=== PATIENT | female | born 1990 | race Caucasian/White ===

== ENCOUNTER 2022-12-13 06:16 | Day surgery (SDC) | payer OTHER, SELFPAY ==
[2022-12-13] MEDS: DOXYCYCLINE HYCLATE 200 MG in 0.9 % SODIUM CHLORIDE 250 ml 250 ML 250 MG IVPB (06:45)
[2022-12-13] MEDS: LACTATED RINGERS 1000 ML 1,000 ML 100 ML IV (06:45)
[2022-12-13 06:54] LABS: Hemoglobin* 14.7 gm/dL (12.0-16.0)
[2022-12-13 07:15] VITALS: BP 122/71; PULSE 97; RESP 16; TEMP 37.6; O2SAT 98
[2022-12-13] MEDS: SODIUM CHLORIDE 0.9 % (FLUSH) 10 ML SYRINGE IVF (07:18)
--- NOTE | 2022-12-13 07:48 | P.GYNHP_ITS ---
[employer]: H&P: HPI Surgical History of Present Illness Time Seen by Provider: 07:30 Date Seen: 12/13/22 Last H&P: No Data to Display Narrative: Shiloh Crowder is a 32 year old female seen in pre-op prior to pl anned suction D&C for missed . She is 10w6d by LMP, measuring 6w2d by CRL of 5mm with absent cardiac activity and adjacent small subchorionic hemorrhage. hCGs were trended and noted to be decreasing consistent with early loss, from 16,772 to 13,490 across 48 hours. Shiloh affirms she is asymptomatic at this time. Denies significant abdominal pain or vaginal bleeding. No fevers/chills, chest pain, dyspnea, nausea/vomiting. PFSH PFSH Medical History (Updated 12/12/22 @ 09:08 by Lesvia Mack RN) Missed ?O02.1 - Missed (ICD-10) Pre-eclampsia affecting childbirth ?O14.94 - Unspecified pre-eclampsia, complicating childbirth (ICD-10) Pre-eclampsia ?O14.90 - Unspecified pre-eclampsia, unspecified trimester (ICD-10) Surgical History (Updated 12/12/22 @ 09:08 by Lesvia Mack RN) Status post primary low transverse section ?Z98.891 - History of uterine scar from previous surgery (ICD-10) Social History Smoking Status: Never smoker Do you use any of these nicotine containing products: None How often do you have a drink containing alcohol: never AUDIT-C Alcohol total score: 0 Non-prescribed substance use: denies use Meds Home Medications and Allergies Home Medications Medication Instructions Recorded Confirmed Type docosahexaenoic acid 200 mg mg PO 12/09/22 12/09/22 History capsule ( DHA) Allergies Allergy/AdvReac Type Severity Reaction Status Date / Time No Known Allergies Allergy Unverified 12/09/22 11:37 [employer] - Exam Physical Exam: Vital signs: Temp Pulse Resp BP Pulse Ox O2 Del Method 99.7 F H 97 16 122/71 98 Room Air 12/13/22 07:15 12/13/22 07:15 12/13/22 07:15 12/13/22 07:15 12/13/22 07:15 12/13/22 07:15 Narrative: General: No acute distress Psych: Alert and oriented x 3, full affect [employer] - Results Labs Labs: Short CBC 12/13/22 Range/Units 06:43 Hgb 14.7 (12.0-16.0) gm/dL Assessment and Plan Assessment and plan (1) Missed : Status: Acute (2) Status post delivery: Status: Acute Plan Ms. Crowder is a 32yo at 10w6d by LMP measuring 6w2d by US seen for missed . Formal US confirmed 5mm pole with absent cardiac activity and adjacent subchorionic hemorrhage. hCG were subsequently trended, noted to decrease across 48 hours of monitoring. Her clinical picture is most consistent with early loss or missed , for which Shiloh is asymptomatic. She was counseled by Dr. Martinez on her options for missed on 12/09 and consented for surgery. She does understand an alternative method to diagnose early loss would be interval US, 11 days from a US with pole without cardiac activity. She wishes to proceed today given decreasing hCG given desire to attempt again in the near future. I agree this is reason able. We again reviewed the risks of surgery including bleeding, infection and damage to surrounding structures - noting bleeding and perforation are increased in the setting of . Plan luz-operative US to affirm thin endometrial stripe at completion of procedure. Return precautions reviewed, plan post-op visit in 2 weeks with myself. All questions answered. - Proceed to suction D&C - Perioperative doxycycline - Active T/S and repeat Hgb on file
[2022-12-13] MEDS: BUPIVACAINE 0.5% 30 ML INJECTION (08:13)
--- NOTE | 2022-12-13 08:23 | W.ANESCHARGE ---
Anesthesia Charges Start Date/Time Anesthesia Start Date: 12/13/22 Anesthesia Start Time: 07:44 Stop Date/Time Anesthesia Stop Date: 12/13/22 Anesthesia Stop Time: 08:42
[2022-12-13 08:39] VITALS: BP 98/58; PULSE 95; RESP 16; TEMP 36.5; O2SAT 92
--- NOTE | 2022-12-13 08:40 | P.GYNPRC_ITS ---
Procedure Note Time Seen by Provider: 10:15 Date of procedure: 12/13/22 Pre-op diagnosis: Missed Post-op diagnosis: same Procedure: Suction dilation and curettage Anesthesia: MAC and local Complications: None Surgeon: Mohit Patterson MD Estimated blood loss (mL): 50 IV fluids (mL): 900 Urine Output (mL): 120 Pathology: specimen obtained, sent to pathology Condition: stable Disposition: same day Findings: Retroverted uterus, irregular gestational sac seen on brief pre-procedure transabdominal US consistent with diagnosis of known missed Products of conception evacuated from uterus Post-procedure transabdominal US confirmed thin and homogenous appearing endometrial stripe, doppler flow negative Procedure Description: After verifying written informed consent, the patient was taken to the operating room. A time-out was completed to verify correct patient and procedure. Anesthesia was induced and found to be adequate. She was placed in the dorsal lithotomy position in yellow-fin stirrups with care taken to avoid neurologic injury. She did receive a preoperative dose of doxycycline per protocol. Bedside transabdominal US was performed, findings as noted above. She was prepared and draped in the usual sterile fashion. A surgical pause was conducted to confirm correct patient and procedure. Bladder was emptied with I/O catheterization. Speculum exam performed, vaginal mucosa and cervix without abnormality. The cervix was grasped with a single-tooth tenaculum. A paracervical block was applied with 0.5% bupivicaine. The cervix was serially dilated to accommodate a No. 7 curved curette. The curette was then introduced without difficulty and advanced to the uterine fundus. The intrauterine contents were aspirated until there was no further return of tissue. Following this, a gentle sharp curettage was performed of the uterine cavity, demonstrating satisfactory uterine cri in all four quadrants. One additional pass was made with the suction curette with no tissue return. Transabdominal ultrasound was performed documenting a thin, uniform endometrial stripe. Tenaculum was removed from the cervix. Cervix was made with gentle pressure. Sponge and instrument count was correct. The patient was transferred to the recovery room in ex cellent condition. Surgical debrief completed. EBL 50cc, UOP 120cc, IVF 900cc. Products of conception were submitted to pathology.
[2022-12-13 08:45] VITALS: BP 103/67; PULSE 91; RESP 16; O2SAT 94
[2022-12-13 09:01] VITALS: BP 98/67; PULSE 67; RESP 16; TEMP 36.6; O2SAT 95
--- NOTE | 2022-12-13 11:21 | W.ANESCHARGE ---
Anesthesia Charges Start Date/Time Anesthesia Start Date: 12/13/22 Anesthesia Start Time: 07:44 Stop Date/Time Anesthesia Stop Date: 12/13/22 Anesthesia Stop Time: 08:42
== END 2022-12-13 09:24 | disposition home or self-care (01) ==
PROVIDERS: Obstetrics & Gynecology; PCP Family Medicine; Visit Provider Obstetrics & Gynecology
PROC: (CPT 59820; principal; 2022-12-13 07:30)
DX: O02.1 Missed abortion (principal)
CPT/HCPCS: 59820; 01965; 36415; 85018; 86850; 86900; 86901; 88305; J0665; J1100; J1885; J2250; J2405; J2704; J3010; J7050; J7120

== ENCOUNTER 2024-04-30 15:30 | Outpatient (CLI) | payer OTHER, SELFPAY ==
[2024-04-30] VITALS (7 sets, daily range): BP systolic 119–125; BP diastolic 70–75; PULSE 94–108; O2SAT 97–98
[2024-04-30 16:03] LABS: Hematocrit 35.4 % (33.0-51.0); Hemoglobin* 12.2 gm/dL (12.0-16.0); Mean Corpuscular HGB Conc 35 gm/dL (32-36); Mean Corpuscular Hemoglobin 30 pg (26-34); Mean Corpuscular Volume 87 fL (80-100); Platelet Count* 272 K/uL (140-440); Red Blood Count 4.05 m/uL (4.00-5.20); White Blood Count* 10.31 K/uL (4.50-11.00)
[2024-04-30 16:08] LABS: Slide Review Reflex No
[2024-04-30 16:28] LABS: Blood Urea Nitrogen* 13 mg/dL (5-24); Creatinine* 0.6 mg/dL (0.5-1.5); Estimated Glomerular Filt Rate 122 ml/min
[2024-04-30 16:29] LABS: Alanine Aminotransferase* 15 U/L (4-35); Aspartate Amino Transferase* 18 U/L (12-35)
[2024-04-30 16:30] LABS: Total Protein Urine 12 mg/dL
[2024-04-30 16:31] LABS: Creatinine Urine 40.9 mg/dL; Protein Creatinine Ratio Urine 0.29 (0-0.19)
--- NOTE | 2024-04-30 17:15 | PC.OBNST ---
NST Note NST Note Start: 04/30/24 15:42 Freq: ONCE Status: Active Protocol: Document 04/30/24 17:00 VONDA (Rec: 04/30/24 17:15 VONDA [id number]) NST Note 5 Para (# of births) 1 EDC 06/09/24 Gestational Age In Weeks & Days 34 Weeks & 2 Days High Risk Factors High Blood Pressure - Gestational Patient Presented with Complaint(s) of Headache Other Complaints elevated BPs at home Reactive Yes Appropriate for Gestational Age Yes MEGHAN hanson RN Date 04/30/24 Reactive Yes Appropriate for Gestational Age Yes MEGHAN Owen RNC Date 04/30/24 OB NST charge Yes Complete NST Note via Write Note Yes The provider's electronic signature indicates the NST is reactive/appropriate for gestational age. *Note to provider: If an addendum is required, open the patient's chart and click on the note under the Nurse/Allied Health tab.
--- NOTE | 2024-05-28 02:05 | PC.OBNST ---
NST Note NST Note Start: 04/30/24 15:42 Freq: ONCE Status: Discharge Protocol: Document 04/30/24 17:00 VONDA (Rec: 04/30/24 17:15 VONDA [email or web address]) NST Note 5 Para (# of births) 1 EDC 06/09/24 Gestational Age In Weeks & Days 34 Weeks & 2 Days High Risk Factors High Blood Pressure - Gestational Patient Presented with Complaint(s) of Headache Other Complaints elevated BPs at home Reactive Yes Appropriate for Gestational Age Yes MEGHAN hanson RN Date 04/30/24 Reactive Yes Appropriate for Gestational Age Yes MEGHAN Owen RNC Date 04/30/24 OB NST charge Yes Complete NST Note via Write Note Yes The provider's electronic signature indicates the NST is reactive/appropriate for gestational age. *Note to provider: If an addendum is required, open the patient's chart and click on the note under the Nurse/Allied Health tab.
== END 2024-04-30 17:05 | disposition home or self-care (01) ==
LOC: OB OUT 15:30 → OB 15:31
PROVIDERS: PCP Family Medicine; Visit Provider Surgery
DX: O13.3 Gestational [pregnancy-induced] hypertension without significant proteinuria, third trimester (principal); Z3A.34 34 weeks gestation of pregnancy
CPT/HCPCS: 36415; 59025; 82565; 82570; 84156; 84450; 84460; 84520; 85027; G0463

== ENCOUNTER 2024-05-15 18:48 | Inpatient (IN) | payer OTHER, SELFPAY ==
[2024-05-15] VITALS (42 sets, daily range): BP systolic 112–139; BP diastolic 76–89; PULSE 82–115; RESP 16–18; TEMP 36.6–37; O2SAT 92–100; BMI 33.4
[2024-05-15 17:26] LABS: Hematocrit* 37.3 % (33.0-51.0); Hemoglobin* 12.7 gm/dL (12.0-16.0); Mean Corpuscular HGB Conc 34 gm/dL (32-36); Mean Corpuscular Hemoglobin 30 pg (26-34); Mean Corpuscular Volume 87 fL (80-100); Platelet Count* 224 K/uL (140-440); Red Blood Count* 4.28 m/uL (4.00-5.20); White Blood Count* 8.56 K/uL (4.50-11.00)
[2024-05-15 17:36] LABS: Slide Review Reflex No
[2024-05-15 17:38] LABS: Amnisure Rom* POSITIVE
[2024-05-15 17:41] LABS: Alanine Aminotransferase* 18 U/L (4-35); Aspartate Amino Transferase* 25 U/L (12-35); Blood Urea Nitrogen* 12 mg/dL (5-24); Creatinine* 0.6 mg/dL (0.5-1.5); Estimated Glomerular Filt Rate 122 ml/min
[2024-05-15] MEDS: LACTATED RINGERS 1000 ML 1,000 ML IV (18:30)
[2024-05-15 18:40] LABS: Total Protein Urine 21 mg/dL
[2024-05-15 18:41] LABS: Creatinine Urine 94.5 mg/dL; Protein Creatinine Ratio Urine 0.22 (0-0.19)
--- NOTE | 2024-05-15 18:55 | PM.OBCN1 ---
OB - CN: HPI Date of Consult Time Seen by Provider: 18:55 Date Seen: 05/15/24 Consult date: 05/15/24 Requesting Physician: Neida Chicas MD Primary Care Provider: Charisma Aleman MD Consult Narrative Narrative: The patient is a 34 year old G 5 P 1 at 36 weeks gestation that was admitted to the Center on 05/15/24 for PPROM. Patient was transferred to Ob triage from the [facility] for BP monitoring and assessment of leaking of fluids. On arrival, she was found to be normotensive and hemodynamically stable. Preeclampsia labs were obtained, found to be within normal limits. Assessment for rupture membranes was completed, where AmniSure was found to be positive. She was status post transabdominal ultrasound in the clinic, confirming persistent breech male presentation. is otherwise complicated by prior for to breech malpresentation and a history of preeclampsia. Of note, patient being closely watched for hypertensive disorder of due to symptoms such as headaches and floaters. To my understanding, this is the 1st clinically recognize instance of elevated blood pressure at the [facility] today. Patient did receive betamethasone course approximately 3 weeks ago due to this concern. Patient has noted leaking of watery fluid, mostly in the evening for about the last 2-3 days. She denies regular/painful contractions, vaginal bleeding. Endorses active movement. Review of systems is otherwise negative. History History 5 Elective abortions Para 1 Spontaneous abortions Hx # Term Pregnancies Ectopic pregnancies Hx # Pregnancies Multiple births Number of Living Children 1 [facility] Medical History (Updated 05/15/24 @ 19:04 by Imani Patterson MD) Missed ?O02.1 - Missed (ICD-10) Pre-eclampsia affecting childbirth ?O14.94 - Unspecified pre-eclampsia, complicating childbirth (ICD-10) Pre-eclampsia ?O14.90 - Unspecified pre-eclampsia, unspecified trimester (ICD-10) Surgical History (Updated 04/30/24 @ 15:46 by Margo Kruger MD) Status post primary low transverse section ?Z98.891 - History of uterine scar from previous surgery (ICD-10) Social History What is your current living situation?: I presently have a place to live Problems where you live: no known problems In the past 12 months, utilities in danger of being shut off: no In past 12 months, lack of transportation kept you from medical appts, meetings, work, or getting things needed for daily living: no In the past 12 mos, have been you worried that your food would run out before you had money to buy more?: never true In the past 12 mos, the food you bought just didn't last and you didn't have money to buy more?: never true Smoking Status: Never smoker Do you use any of these nicotine containing products: None How often do you have a drink containing alcohol: never AUDIT-C Alcohol total score: 0 Non-prescribed substance use: denies use How often does anyone, including family, friends and others, physically hurt you: never How often does anyone, including family, friends and others, insult or talk down to you: never How often does anyone, including family, friends and others, threaten you with harm: never How often does anyone, including family, friends and others, scream or curse at you: never Meds Home Medications and Allergies Home Medications ?Medication ?Instructions ?Recorded ?Confirmed ?Type docosahexaenoic acid 200 mg mg PO 12/09/22 04/30/24 History capsule ( DHA) aspirin 81 mg chewable tablet 81 mg PO QDAY 04/30/24 05/15/24 History Allergies Allergy/AdvReac Type Severity Reaction Status Date / Time No Known Allergies Allergy Verified 05/15/24 17:30 OB - H&P: Exam Physical Exam: Vital signs: Pulse BP Pulse Ox 106 H 125/86 100 05/15/24 18:51 05/15/24 18:51 05/15/24 18:52 Narrative: General: Alert and oriented, no acute distress Psych: Appropriate mood and affect Abdomen: Gravid. heart rate: Reactive NST. Baseline of 130 beats per minute, moderate variability, several qualifying 15 x 15 accelerations present, decelerations absent. [place]: Rare uterine contractions noted, non painful OB - Results Labs Labs: Short CBC 05/15/24 Range/Units 17:20 WBC 8.56 (4.50-11.00) K/uL Hgb 12.7 (12.0-16.0) gm/dL Hct 37.3 (33.0-51.0) % Plt Count 224 (140-440) K/uL BMP 05/15/24 17:20 BUN 12 Creatinine 0.6 Liver Function 05/15/24 Range/Units 17:20 AST 25 (12-35) U/L ALT 18 (4-35) U/L OB - CN: A/P Assessment and Plan (1) History of pre-eclampsia: Status: Acute (2) Previous delivery affecting : Status: Acute (3) Breech presentation: Status: Acute (4) premature rupture of membranes (PPROM) delivered, current hospitalization: Status: Acute (5) Elevated blood pressure reading without diagnosis of hypertension: Status: Acute Plan Patient is a 34-year-old admitted at 36 weeks in the setting of PPROM. is otherwise complicated by elevated blood pressure without diagnosis of hypertension (normal pre E labs today), history of preeclampsia and prior delivery. She has been receiving her routine care through [facility]. Patient had intended to have a repeat delivery, due to her prior and persistent breech male presentation. At a routine clinic visit today, she was found to be newly hypertensive. She has been monitored for this previously, due to her history and some elevated blood pressures at home with intermittent headache/vision changes. Today represents her 1st likely confirmed episode of elevated blood pressure, that she does not yet meet criteria for hypertensive disorder of . Preeclampsia labs were within normal limits today, as noted above. Plan to add on a type and screen to her labs. Patient has had leaking of fluid intermittently for the last 2-3 days. Underwent assessment on arrival to triage, where PPROM was confirmed by positive Amnisure. Recommend proceed with repeat delivery tonight in the setting of PPROM and breech malpresentation. Patient expressed understanding and is agreeable to plan. The risks/benefits and alternatives of the intended surgery reviewed in detail, including risk of bleeding, infection, damage to surrounding structures. Patient does not desire any surgical sterilization. Written consent was obtained. - Plan to transfer to the operating room for repeat delivery - Perioperative Ancef and azithromycin ordered - Preeclampsia labs were within normal limits on admission. Plan to diligently monitor blood pressures, where she would meet criteria for hypertensive disorder of with future episodes of HTN. - GBS unknown - Pediatric provider to attend delivery in the setting of unscheduled and breech malpresentation
[2024-05-15] MEDS: AZITHROMYCIN 500 MG in 0.9 % SODIUM CHLORIDE 250 ml 250 ML 255 MG IVPB (19:01)
--- NOTE | 2024-05-15 19:07 | PM.OBPRCCS ---
Procedure Date of procedure: 05/15/24 Pre-op diagnosis: PPROM, breech malpresentation, history of C/S Post-op diagnosis: same Procedure Done: only Will [facility] bill your pro fee for this procedure?: Yes Blood Loss Measurement Type: QBL (535mL) IV fluids (mL): 1,900 Urine Output (mL): 100 Surgeon: Mohit Patterson MD Anesthesia Type: Spinal Findings: Significant scar tissue of the rectus fascia to underlying rectus abdominis muscles and peritoneum Thin adhesions anterior uterine serosa to anterior abdominal wall Liveborn female fetus Unremarkable uterus, bilateral fallopian tubes and ovaries Procedure Name: Repeat delivery Procedure Description: Patient was taken to the operating room with IV running. She received cefazolin and azithromycin in preoperative prophylaxis. Spinal anesthesia was administered. Arnold catheter was inserted. She was prepped and draped in the usual sterile fashion. Anesthesia was tested and found to be adequate. A low-transverse skin incision was made with a scalpel and carried through to the underlying layer of fascia with the scalpel. The subcutaneous fat was dissected off the underlying fascia with Bovie and blunt dissection. The fascia was nicked in the midline with a scalpel, and this incision was extended laterally with scissors. Dense adhesions were noted in the midline, where the lateral margins of the fascia were grasped and elevated where the fascia was dissected off the underlying rectus muscles. Careful sharp and blunt dissection continued at the midline due to adhesive disease, where ultimately adequate space was created. The rectus muscles were in the midline, with adhesive disease noted where the peritoneum was quite thickened. The peritoneum was grasped with a Izzy clamp and incised with [place] scissors. A digital sweep was performed, where adhesion between the uterus and anterior abdominal wall was noted. The peritoneal incision was carefully extended with electrocautery while I digitally elevated the peritoneum from underlying adhesions and intraabdominal contents. The adhesions were taken down with combination of blunt and sharp dissection. Peritoneal entry was stretched, then widened laterally with Bovie. Evelio O retractor was inserted and tightened down, providing excellent visualization of the lower uterine segment. The bladder reflection was advanced along the lower uterine segment. A bladder flap was created with a combination of sharp and blunt dissection. Low-transverse uterine incision was made with a scalpel. Incision was widened bluntly. The breech was grasped and elevated to the hysterotomy. Fundal pressure was applied to facility delivery of the body, where the body was rotated and arms were swept downward to facilitate delivery via Loveset's maneuver. Flexion of the neck was achieved with Kfyrhyxms-Cdzjenl-Wzes maneuver and the head delivered atraumatically. No nuchal cord was noted. Cord was clamped and cut after 30 seconds. was handed off to attending nurses and Pediatrics provider. The placenta was delivered with gentle traction on the cord. The uterus was cleaned of all clots and debris with the dry lap pad. The hysterotomy was reapproximated with 0 Vicryl in a running, locked fashion. Second layer of the same suture was used in imbricating fashion to obtain hemostasis. IV TXA was administered during uterine closure. A serosal extension from the hysterotomy and bladder flap was noted to extend inferiorly on the left. A separate figure of eight was applied just inferior to the hysterotomy to obtain additional hemostasis in this area. The area was inspected for several minutes, where no ongoing bleeding was appreciated. Christal was applied across the hysterotomy but focusing on the left sided serosa incision and reinforcing hemostasis stitch. Excellent hemostasis was again confirmed. The adnexa were examined and noted to be normal in appearance. The cul-de-sac and gutters were cleansed with dampened laparotomy sponge, removing any further clots and debris. The Evelio O retractor was removed. The hysterotomy was reexamined and found to be hemostatic. The rectus muscles were examined and noted to have several areas of oozing, addressed primarily with electrocautery. A small fascial defect (<1cm) on the superior right margin was noted with bleeding of the underlying musculature, where figure of eight suture was applied with 2-0 vicryl. Excellent hemostasis noted throughout. The fascia was reapproximated with 0 PDS in a running fashion. Subcutaneous fat was irrigated and Bovie used on oozing vessels. The subcutaneous fat was reapproximated with 2 0 vicryl suture in an interrupted fashion. The skin was closed with a subcuticular stitch of 3-0 monocryl. Surgical glue was applied above this. Surgical dressing and pressure dressing were applied. Patient tolerated procedure well was taken to recovery area in stable condition. Surgical debrief was completed. details: - Liveborn female fetus - weight: 3890g - APGARs were 8 and 8 at 1 and 5 minutes respectively - No cord gas or cord blood was sent Complications: None Pathology: specimen obtained, sent to pathology Surgery Debrief Performed: Yes Condition: stable Disposition: floor
[2024-05-15] MEDS: CEFAZOLIN 2 GM INJ IVP (19:10)
--- NOTE | 2024-05-15 20:59 | P.ANES_ITS ---
Anesthesia Charges Start Date/Time Anesthesia Start Date: 05/15/24 Anesthesia Start Time: 19:12 Stop Date/Time Anesthesia Stop Date: 05/15/24 Anesthesia Stop Time: 21:00 Summary Emergency: SIGN ERECTOR AND REPAIRER Coding CPT Codes CPT Codes: ANESTH CS DELIVERY - 36503 ([id number]) P2 - PATIENT W/MILD SYST DISEASE, QZ - SIGN ERECTOR AND REPAIRER SVC W/O SITE ACQUISITION SPECIALIST BY Additional Codes: Summary - Emergency: SIGN ERECTOR AND REPAIRER ([id number])
--- NOTE | 2024-05-15 20:59 | W.ANESCHARGE ---
Anesthesia Charges Start Date/Time Anesthesia Start Date: 05/15/24 Anesthesia Start Time: 19:12 Stop Date/Time Anesthesia Stop Date: 05/15/24 Anesthesia Stop Time: 21:00 Summary Emergency: COASTAL/HARBOR DEFENSE OFFICER Coding CPT Codes CPT Codes: ANESTH CS DELIVERY - 00802 ([id number]) P2 - PATIENT W/MILD SYST DISEASE, QZ - COASTAL/HARBOR DEFENSE OFFICER SVC W/O SHOW HOST OR HOSTESS BY Additional Codes: Summary - Emergency: COASTAL/HARBOR DEFENSE OFFICER ([id number])
--- NOTE | 2024-05-15 21:00 | W.PM.NB ---
Nerve Block Nerve Block Time Seen by Provider: 20:55 Date Seen: 05/12/24 Type of block requested by surgeon for post-operative analgesia: TAP Side: bilateral Time out performed: Yes Verification of patient name: Yes Verification of date of : Yes Site marking: site marked Name of person performing procedure: mantyl Continuous monitoring Was continuous monitoring of O2 sat, B/P, ekg monitor, recorded every 15 minutes?: Yes Procedure Checklist: sterile prep, needles and gloves Ultrasound guided. Images saved: Yes Medications given in 5ml increments after negative aspiration: Marcaine %: 0.25 mL: 30 and Exparel mL: 10 Block Charges Block Charge (with Pro Fee): TAP Bilateral Use of Ultrasound Machine for Block: Yes- US Guidance/pain block
[2024-05-15] MEDS: LACTATED RINGERS 1000 ML 1,000 ML 125 ML IV (21:44)
[2024-05-15] MEDS: ACETAMINOPHEN 500 MG TABLET 1000 MG PO (23:03)
[2024-05-16] MEDS: KETOROLAC 30 MG/ML inj IVP ×4 (02:28→20:33)
[2024-05-16] MEDS: OXYCODONE 5 MG TABLET PO ×5 (04:08→20:45)
[2024-05-16 04:10] VITALS: BP 124/79; PULSE 94; RESP 18; TEMP 36.6
[2024-05-16] MEDS: ACETAMINOPHEN 500 MG TABLET 1000 MG PO ×3 (04:54→19:39)
[2024-05-16 07:11] LABS: Hemoglobin* 12.2 gm/dL (12.0-16.0)
[2024-05-16 07:15] VITALS: BP 125/82; PULSE 79; RESP 16; TEMP 36.2; O2SAT 98
--- NOTE | 2024-05-16 07:21 | PM.OBPNVD1 ---
OB - PN:Subj Subjective Date Seen: 05/16/24 Narrative: Shiloh is a 34 y.o. who was admitted to [facility] for SROM and breech position.? She had an uncomplicated repeat .? ? The patient feels well.? The pain is well controlled with current medications.? She has no new complaints.? She is breast feeding and reports things are going well.? the patient has done well.? Vitals have been stable.? She has remained afebrile.? Has a good appetite, is tolerating a general diet.? She is voiding without difficulty.? She is passing gas and has not had a bowel movement.? She is ambulating and denies any dizziness.? Has Small amount of rubra lochia.? OB - PN: Obj Exam Physical Exam: Vital signs: Temp Pulse Resp BP Pulse Ox O2 Del Method 97.2 F L 79 16 125/82 98 Room Air 05/16/24 07:15 05/16/24 07:15 05/16/24 07:15 05/16/24 07:15 05/16/24 07:15 05/16/24 07:15 Narrative: GENERAL APPEARANCE:? normal affect, alert, no distress MOOD:? appropriate CHEST:? clear to auscultation HEART:? regular rate and rhythm ABDOMEN:? soft, non-tender the uterine fundus is firm At Umbilicus, Midline and is appropriate for the stage of recovery. PERINEUM:? intact EXTREMITIES:? normal and trace edema Incision: dressing clean dry and intact, due to be removed today OB - PN: Obj Data Labs Labs: Laboratory Results - last 24 hr 05/15/24 05/15/24 17:16 17:20 WBC 8.56 RBC 4.28 Hgb 12.7 Hct 37.3 MCV 87 MCH 30 MCHC 34 Plt Count 224 BUN 12 Creatinine 0.6 Estimated GFR 122 AST 25 ALT 18 Urine Creatinine 94.5 Protein/Creatinin Ratio 0.22 H Urine Total Protein 21 Membrane Rupture POSITIVE Blood Type O Positive Antibody Screen NEGATIVE OB - PN: A/P Delivery Assessment and Plan (1) care and examination immediately after delivery: Status: Acute (2) History of pre-eclampsia: Status: Acute (3) Previous delivery affecting : Status: Acute (4) Breech presentation: Status: Acute (5) premature rupture of membranes (PPROM) delivered, current hospitalization: Status: Acute (6) Elevated blood pressure reading without diagnosis of hypertension: Status: Acute (7) due to : Status: Resolved Plan day: 1 Plan: routine care Comments: Assessment/Plan?G 5 P 2 status post uncomplicated repeat .? ?? 1.? Continue route PP cares? 2.? .? May see if desired? 3.? Anticipate discharge home tomorrow or the following day per pt preference? 4. Stable blood pressure readings since delivery?
[2024-05-16] MEDS: DOCUSATE SODIUM 100 MG CAPSULE PO (08:30)
[2024-05-16 12:25] VITALS: BP 118/77; PULSE 94; RESP 15; TEMP 36.5; O2SAT 97
[2024-05-16 12:40] LABS: Strep B DNA Probe POSITIVE (Negative)
[2024-05-16 12:41] LABS: Strep B Susceptibility Needed? No
[2024-05-16 16:40] VITALS: BP 118/82; PULSE 90; RESP 16; TEMP 36.3
[2024-05-16 20:51] VITALS: BP 123/79; PULSE 90; RESP 16; TEMP 36.8; O2SAT 96
[2024-05-17] MEDS: OXYCODONE 5 MG TABLET PO ×4 (00:48→20:26)
[2024-05-17 01:12] VITALS: BP 130/84; PULSE 91; RESP 16; TEMP 36.7; O2SAT 96
[2024-05-17] MEDS: KETOROLAC 30 MG/ML inj IVP (02:42)
[2024-05-17] MEDS: ACETAMINOPHEN 500 MG TABLET 1000 MG PO ×3 (05:17→17:39)
[2024-05-17 05:50] VITALS: BP 129/87; PULSE 98; RESP 16; O2SAT 97
[2024-05-17] MEDS: DOCUSATE SODIUM 100 MG CAPSULE PO (07:52)
[2024-05-17] MEDS: IBUPROFEN 600 MG TABLET PO ×3 (07:52→20:26)
--- NOTE | 2024-05-17 08:41 | PM.OBDSVD1 ---
DS: Providers Provider Date Seen: 05/17/24 Date of admission: 05/15/24 18:48 Primary care physician: Charisma Aleman MD Admitting Clinician: Neida Chicas MD Attending Physician on discharge: Neida Chicas MD Date of Discharge: 05/17/24 DS: Diagnosis Discharge Diagnosis (1) care following delivery: Status: Acute Exam Narrative: Exam Narrative: GENERAL APPEARANCE:? normal affect, alert, no distress? MOOD:? appropriate? CHEST:? clear to auscultation and percussion? HEART:? regular rate and rhythm? ABDOMEN:? soft, non-tender the uterine fundus is U/2 and is appropriate for the stage of recovery. Incision dressing is clean dry and intact. Plans to remove dressing in the shower today before discharge. EXTREMITIES:? normal and no edema? Const: Vital Signs, click to edit/add: Vital Signs - 24 hr 05/16/24 12:25 05/16/24 16:40 05/16/24 20:51 Temperature 97.7 F 97.3 F L 98.2 F Pulse Rate [Pulse Oximeter] 94 90 90 Respiratory Rate 15 16 16 Blood Pressure [Le ft Arm] 118/77 118/82 123/79 Pulse Oximetry 97 96 Oxygen Delivery Me thod Room Air Room Air 05/17/24 01:12 05/17/24 05:50 Temperature 98.0 F Pulse Rate [Pulse Oximeter] 91 98 Respiratory Rate 16 16 Blood Pressure [Le ft Arm] 130/84 129/87 Pulse Oximetry 96 97 Oxygen Delivery Me thod Room Air Room Air Documenting provider has reviewed patient's vital signs: yes OB - DS: Summary Hospital Course Hospital Course: Shiloh is a 34 year old G 5 P 2 at 36 weeks gestation that was admitted to the Center on 05/15/24 for PPROM. She had an uncomplicated repeat delivery. She delivered a viable female . She is bottle feeding and plans to pump and feed expressed breast milk when her milk comes in. She has began pumping in the hospital. the patient has done well. Her pain is well controlled with current medications.? She has no new complaints.? Urinary output is adequate and she is voiding without difficulty.? Has a good appetite, is tolerating a general diet, is passing flatus, and has not had a bowel movement.? Has scant amount of rubra lochia.? She is ambulating well. She is planning condoms for contraception. Did also mention the Caya diaphragm as an option. She doesn't have a diagnosis fo GHTN but with her history of preeclampsia and elevated blood pressures I did encourage her to check her blood pressures BID at home and reviewed symptoms. She has a blood pressure cuff at home already. Peripartum Data delivery method: Repeat Section Procedures: Procedures Operation Date: 05/15/24 18:30 Actual Procedure Side Surgeon p Repeat Section Imani Patterson MD complications: none [place] Gender: Female Discharge Plan: Home Status at Discharge Functional status at discharge: independent ambulation Overall status at discharge: patient is progressing back to baseline Time Spent with Patient Time attestation: Total time spent providing and/or coordinating discharge services: Discharge Plan Discharge Disposition: Home, Self-Care Date of Admission: 05/15/24 18:48 Attending Provider on Discharge: Harper Sharpe Primary Care Provider: Charisma Aleman Condition: Stable Anticipated Discharge Date/Time: 05/17/24 10:00 Discharge Medications: New ibuprofen 600 mg Tablet 600 mg PO Q6H PRN (Reason: Pain) Qty: 120 0RF docusate sodium 100 mg Capsule 100 mg PO DAILY Qty: 120 0RF oxycodone 5 mg Tablet 5 - 10 mg PO Q4H PRN (Reason: Pain) Qty: 14 0RF Continued DHA 200 mg capsule 200 mg PO DAILY Discontinued aspirin 81 mg tablet,chewable 81 mg PO QDAY Discharge Orders: Discharge Order (Routine); Ordered 05/17/24 Ordered By: Harper Sharpe Patient Education: OB /Breast Feeding Additional Instructions: Discharge instructions were reviewed with the patient including signs and symptoms of infection and home going medications? ?? Activity restrictions:? Lifting Restrictions: 20 pounds for 6 weeks? No high-impact or core exercises for 6 weeks.?? No not submerge incision under water X 2 weeks?? Nothing vaginally for 6 weeks: no tampons or intercourse? Do not drive while taking narcotic pain medication(s)? Off Work or School for 8 weeks? ?? Symptoms to report to doctor:? -Bleeding that saturates more than one pad per hour? -Passing clots larger than the size of a golf ball? -Pain not relieved by prescribed medication? -Fever above 100.4 degrees Fahrenheit? -A foul vaginal odor? -Difficulty in emotions, mood and functions? -Thoughts of hurting yourself and/or ? -Painful, reddened area in your breast? -Any drainage, redness or tenderness in your IV/epidural site? -Severe headache that doesn't improve after taking medications? -Changes in vision, including temporary loss of vision, blurred vision, and/or light sensitivity? -Upper abdominal pain (usually under ribs on the right side)? -Decrease in urination or painful, frequent urinating? -Chest pain? -Shortness of breath? -Tenderness or pain with redness and/swelling in the calf(s) of your leg? Follow up visits:?? 1. 1 week visit:? incision check.? 2. 2-week visit: discuss feeding/care concerns, review control options and screen for anxiety/depression.? 3. 6-week visit for an annual exam.? ?? consultation services are available to all mothers and babies for the first year after delivery.? To make an appointment, please call [phone].? Follow Up Appointments: [facility] [Provider Group] Charisma Aleman MD [Primary Care Provider] - Forms: [facility] Info Instructions
[2024-05-17 10:30] VITALS: BP 135/84; PULSE 98; RESP 16; TEMP 36.9; O2SAT 97
[2024-05-17 19:59] VITALS: BP 128/85; PULSE 83; RESP 16; TEMP 36.9; O2SAT 98
== END 2024-05-17 20:48 | disposition home or self-care (01) | DRG 788 ==
LOC: OB OUT 18:48 → OB 18:48
PROVIDERS: Admitting Provider Obstetrics & Gynecology; PCP Family Medicine; Visit Provider Family Medicine
PROC: (CPT 59514; principal; 2024-05-15 18:15)
DX: O34.211 Maternal care for low transverse scar from previous cesarean delivery (principal); Z3A.36 36 weeks gestation of pregnancy; Z37.0 Single live birth; O42.013 Preterm premature rupture of membranes, onset of labor within 24 hours of rupture, third trimester; O32.1XX0 Maternal care for breech presentation, not applicable or unspecified; Z87.59 Personal history of other complications of pregnancy, childbirth and the puerperium; R03.0 Elevated blood-pressure reading, without diagnosis of hypertension; G89.18 Other acute postprocedural pain
CPT/HCPCS: 01961; 36415; 64488; 76942; 82565; 82570; 84112; 84156; 84450; 84460; 84520; 85018; 85025; 85027; 86850; 86900; 86901; 87081; 87653; 88307; 99140; A4314; A9270; J0456; J0665; J0666; J0690; J1100; J1885; J2371; J2405; J2590; J7050; J7120